=== PATIENT | female | born 1985 | race Caucasian/White ===

== ENCOUNTER → 2019-01-13 | Outpatient (CLI) | payer OTHER | END | disposition home or self-care (01) | LOC: NST 22:53 | DX: Z34.83 Encounter for supervision of other normal pregnancy, third trimester (principal) ==

== ENCOUNTER 2019-02-28 11:45 | Inpatient (IN) | payer OTHER ==
[~2019-02-28] VITALS: Ht 170.2 cm; Wt 73.0 kg
[2019-03-12] MEDS ORDERED: PRENATAL PLUS1 EAC1 PO (09:29)
== END 2019-03-14 12:36 | DRG 807 ==
LOC: LDR 03-12 09:03 → SURG-SUITE 03-12 16:30 → SURH 03-20 11:45
PROVIDERS: ADMIT Obstetrics & Gynecology Maternal & Fetal Medicine
PROC: 10E0XZZ Delivery of Products of Conception, External Approach (ICD-10-PCS; principal; 2019-03-12)
PROC: 0HQ9XZZ Repair Perineum Skin, External Approach (ICD-10-PCS; 2019-03-12)
PROC: 4A0HXFZ Measurement of Products of Conception, Cardiac Rhythm, External Approach (ICD-10-PCS; 2019-03-12)
DX: O70.0 First degree perineal laceration during delivery (principal); Z37.0 Single live birth; Z3A.38 38 weeks gestation of pregnancy

== ENCOUNTER 2020-12-15 15:30 | Inpatient (IN) | payer OTHER ==
[~2020-12-15] VITALS: Ht 167.6 cm; Wt 70.8 kg
[~2020-12-15 15:30] MED LIST: PRENATAL PLUS1 EAC1 PO
== END 2021-01-03 13:26 | disposition home or self-care (01) | DRG 807 ==
LOC: SURG-SUITE 01-01 06:03 → LDR 01-01 06:03 → SURG-SUITE 01-01 06:03 → OB/GYN 01-04 15:30
PROVIDERS: ADMIT Obstetrics & Gynecology; ATTEND Obstetrics & Gynecology
PROC: 10E0XZZ Delivery of Products of Conception, External Approach (ICD-10-PCS; principal; 2021-01-01)
PROC: 4A1HXFZ Monitoring of Products of Conception, Cardiac Rhythm, External Approach (ICD-10-PCS; 2021-01-01)
DX: O80 Encounter for full-term uncomplicated delivery (principal); Z37.0 Single live birth; Z3A.39 39 weeks gestation of pregnancy; Z20.822 Contact with and (suspected) exposure to COVID-19

== ENCOUNTER 2020-12-30 10:32 | Outpatient (CLI) | payer OTHER | END 2020-12-30 11:09 | disposition home or self-care (01) | LOC: NST 10:32 | PROVIDERS: ATTEND Obstetrics & Gynecology Maternal & Fetal Medicine | DX: Z34.83 Encounter for supervision of other normal pregnancy, third trimester (principal) ==

== ENCOUNTER 2024-05-05 10:55 | Outpatient (CLI) | payer OTHER | END 2024-05-05 11:02 | disposition home or self-care (01) | LOC: SONOGRAMA 10:55 | PROVIDERS: ATTEND Pathology Anatomic Pathology & Clinical Pathology | DX: R59.0 Localized enlarged lymph nodes (principal); R22.1 Localized swelling, mass and lump, neck ==